=== PATIENT | female | born 1965 | race African-American/Black ===

== ENCOUNTER 2022-05-23 00:16 | Emergency (ER) | payer BC ==
[2022-05-23] MEDS ORDERED: Tetracaine 0.5% PF 4 ML BOT ONE (00:28)
[2022-05-23] MEDS ORDERED: Fluorescein Opthalmic Strip ONE (00:28)
== END 2022-05-23 00:45 | disposition home or self-care (01) ==
LOC: NAV ERS 00:16
DX: S05.01XA Injury of conjunctiva and corneal abrasion without foreign body, right eye, initial encounter (principal); I10 Essential (primary) hypertension; X58.XXXA Exposure to other specified factors, initial encounter
CPT/HCPCS: 99283